=== PATIENT | male | born 1935 | race Hispanic/Latino ===

== ENCOUNTER 2018-11-22 10:55 | Outpatient (CLI) | payer MEDICARE ==
--- NOTE | 2018-11-22 12:43 | XRay Report ---
ABDOMINAL SERIES WITH CXR THREE VIEWS: 11/22/18 CLINICAL: Abdominal pain. FINDINGS: Supine upright views demonstrate a few mildly dilated loops of small bowel with air-fluid levels in both upper quadrants with the most prominent the left upper quadrant. However, nondistended distal loops of small bowel and gas in nondistended loops of colon. No pneumoperitoneum. A right upper quadrant calcifications may be a gallstone. Left upper quadrant calcifications appear to be vascular. No pancreatic calcifications. No mass.Degenerative changes in the spine. The chest is negative with less than optimal lung expansion. IMPRESSION: Possible cholelithiasis and nephrolithiasis. No evidence of bowel obstruction or perforation. Negative chest.
== END 2018-11-22 10:56 | disposition home or self-care (01) ==
LOC: SPVIMAG 10:55
PROVIDERS: ATTEND Internal Medicine
DX: R10.84 Generalized abdominal pain (principal); M47.819 Spondylosis without myelopathy or radiculopathy, site unspecified
CPT/HCPCS: 74022